=== PATIENT | female | born 1960 | race Caucasian/White ===

== ENCOUNTER 2017-09-30 06:00 | Day surgery (SDC) | payer OTHER ==
[~2017-09-30 06:00] MED LIST: DILTIAZEM 24HR120 MG PO; LOSARTAN-HCTZ1 EACH PO; SYNTHROID75 MCG PO; [UNRECOGNIZED DRUG - OTHER] PO
== END 2017-09-30 13:55 | disposition home or self-care (01) ==
LOC: CIR.AMB 06:00
DX: Z42.1 Encounter for breast reconstruction following mastectomy (principal); Z85.3 Personal history of malignant neoplasm of breast; Z08 Encounter for follow-up examination after completed treatment for malignant neoplasm